=== PATIENT | male | born 1990 | race Caucasian/White ===

== ENCOUNTER 2022-11-21 09:49 | Emergency (ER) | payer MEDICAID ==
[~2022-11-21] VITALS: Ht 165.1 cm; Wt 76.7 kg
--- NOTE | 2022-11-21 09:52 | NUR ---
PT PLACED IN BED 05 BY [facility]
[2022-11-21 09:53] VITALS: BP 137/87
--- NOTE | 2022-11-21 10:13 | NUR ---
32 Y/O MALE BIBA FROM HOME, PT C/O ABD PAIN IN LLQ THAT STARTED TODAY. PT ALSO C/O N/V/D. DENIES ANMY RECENT ETOH OR DRUG USE. PMH: DENIES NKA
[2022-11-21] MEDS ORDERED: FAMOTIDINE 20 MG/2 ML VIAL IVP ONE (10:45)
[2022-11-21] MEDS ORDERED: KETOROLAC 30 MG/ML VIAL IVP ONE (10:45)
[2022-11-21] MEDS ORDERED: ONDANSETRON 4 MG/2 ML VIAL IVP ONE (10:45)
[2022-11-21] MEDS ORDERED: NACL 0.9% 1,000 ML IV SCH (10:45)
--- NOTE | 2022-11-21 11:11 | NUR ---
DR HERRERA AT BEDSIDE.
[2022-11-21 11:15] LABS: BASOPHILS % (AUTO) 0.1 % (0.0-2.0); EOSINOPHILS % (AUTO) 0.1 % (0.0-4.0); HEMATOCRIT 45.5 % (36-52); HEMOGLOBIN 15.7 g/dL (12.0-18.0); LYMPHOCYTES % (AUTO) 7.9 % (20.5-51.1); MEAN CORPUSCULAR HEMOGLOBIN 29 pg (27-31); MEAN CORPUSCULAR HGB CONC 35 g/dL (33-37); MEAN CORPUSCULAR VOLUME 83.1 fL (80-94); MONOCYTES # (AUTO) 0.4 K/uL (0.8-1.0); MONOCYTES % (AUTO) 3.5 % (1.7-9.3); NEUTROPHILS # (AUTO) 10.9 K/uL (1.8-7.7); NEUTROPHILS % (AUTO) 88.4 % (42.2-75.2); PLATELET COUNT (AUTO) 336 K/uL (140-450); RED BLOOD CELL COUNT(AUTO) 5.47 MIL/uL (4.20-6.10); RED CELL DISTRIBUTION WIDTH 13.3 % (11.6-13.7); WHITE BLOOD COUNT (AUTO) 12.3 K/uL (4.8-10.8)
[2022-11-21 11:15] LABS: APPEARANCE,URINE CLEAR (CLEAR); BILIRUBIN,URINE NEGATIVE (NEGATIVE); BLOOD, URINE NEGATIVE (NEGATIVE); COLOR,URINE YELLOW (YELLOW); LEUKOCYTE ESTERASE ,URINE NEGATIVE (NEGATIVE); NITRITE, URINE NEGATIVE (NEGATIVE); UGLUCOSE NEGATIVE (NEGATIVE)
[2022-11-21 11:46] LABS: ALBUMIN 4.4 g/dL (3.4-5.0); CARBON DIOXIDE 24.6 mmol/L (21-32); CREATININE 0.9 mg/dL (0.6-1.3); POTASSIUM 3.6 mmol/L (3.5-5.1); TOTAL BILIRUBIN 0.3 mg/dL (0.0-1.0)
[2022-11-21] MEDS ORDERED: ONDA-188 PO (12:45)
[2022-11-21] MEDS ORDERED: LOPE-143 PO (12:45)
--- NOTE | 2022-11-21 12:55 | NUR ---
PT DENIES ONGOING N/V/D OR ABDOMINAL PAIN AT THIS TIME.
--- NOTE | 2022-11-21 13:00 | NUR ---
Patient discharged with v/s stable. Written and verbal after care instructions given and explained. Patient alert, oriented and verbalized understanding of instructions. Ambulatory with steady gait. All questions addressed prior to discharge. ID band removed. Patient advised to follow up with PMD. Rx of LOPERAMIDE, ZOFRAN given. Patient educated on indication of medication including possible reaction and side effects. Opportunity to ask questions provided and answered.
[2022-11-21 13:05] VITALS: BP 131/80
--- NOTE | 2022-11-21 13:07 | NUR ---
The patient's care was reviewed and supervised by [facility] 05 GOSIA, RN.
== END 2022-11-21 13:15 | disposition home or self-care (01) ==
LOC: MED 09:49
DX: R11.2 Nausea with vomiting, unspecified (principal); R19.7 Diarrhea, unspecified; Z79.899 Other long term (current) drug therapy
CPT/HCPCS: 36415; 74176; 80053; 81003; 83690; 85025; 96361; 96374; 96375; 99285; J1885; J2405; J3490; J7030

== ENCOUNTER 2022-11-22 08:27 | Inpatient (IN) | payer MEDICAID ==
[~2022-11-22] VITALS: Ht 167.6 cm; Wt 69.4 kg
[~2022-11-22 08:27] MED LIST: LOPE-143 PO; ONDA-188 PO
[2022-11-22 08:39] VITALS: BP 134/77
--- NOTE | 2022-11-22 09:19 | NUR ---
PT AMBULATED TO BED 06
[2022-11-22 09:39] LABS: BASOPHILS % (AUTO) 0.3 % (0.0-2.0); EOSINOPHILS % (AUTO) 0.5 % (0.0-4.0); HEMATOCRIT 45.4 % (36-52); HEMOGLOBIN 15.7 g/dL (12.0-18.0); LYMPHOCYTES # (AUTO) 1.7 K/uL (2.0-11.5); LYMPHOCYTES % (AUTO) 18.6 % (20.5-51.1); MEAN CORPUSCULAR HEMOGLOBIN 29 pg (27-31); MEAN CORPUSCULAR HGB CONC 35 g/dL (33-37); MEAN CORPUSCULAR VOLUME 84.4 fL (80-94); MONOCYTES # (AUTO) 0.6 K/uL (0.8-1.0); MONOCYTES % (AUTO) 6.2 % (1.7-9.3); NEUTROPHILS # (AUTO) 6.9 K/uL (1.8-7.7); NEUTROPHILS % (AUTO) 74.4 % (42.2-75.2); PLATELET COUNT (AUTO) 343 K/uL (140-450); RED BLOOD CELL COUNT(AUTO) 5.38 MIL/uL (4.20-6.10); RED CELL DISTRIBUTION WIDTH 13.4 % (11.6-13.7); WHITE BLOOD COUNT (AUTO) 9.3 K/uL (4.8-10.8)
--- NOTE | 2022-11-22 09:56 | NUR ---
[facility]
[2022-11-22 09:57] LABS: ALBUMIN 4.1 g/dL (3.4-5.0); ANION GAP 11.6 (8-16); CARBON DIOXIDE 29.3 mmol/L (21-32); POTASSIUM 3.9 mmol/L (3.5-5.1); TOTAL BILIRUBIN 0.5 mg/dL (0.0-1.0)
--- NOTE | 2022-11-22 10:05 | NUR ---
Patient returned from CT
--- NOTE | 2022-11-22 10:24 | NUR ---
32 y/o male bib self with c/o RLQ abdominal pain x yesterday. Patient was seen in ER yesterday for same symptoms and prescribed Loperamide and Zofran. Patient reports increase in pain to RLQ. Denies taking any medication, sick contacts or new foods. Patient denies any fevers, diarrhea or nausea. Medical History: Denies NKDA
[2022-11-22] MEDS ORDERED: MORPHINE SULFATE 4 MG/ML SYR IVP ONE (10:50)
--- NOTE | 2022-11-22 10:51 | NUR ---
Dr. Becerra re-evaluating patient at bedside.
[2022-11-22] MEDS ORDERED: NACL 0.9% 1,000 ML IV ONE (10:55)
[2022-11-22] MEDS ORDERED: LORazepam 2 MG/ML VIAL IVP PRN (11:15)
[2022-11-22] MEDS ORDERED: ACETAMINOPHEN 325 MG TAB PO PRN (11:15)
[2022-11-22] MEDS ORDERED: POTASSIUM CHLORIDE 10 MEQ TABER PO PRN (11:15)
[2022-11-22] MEDS ORDERED: ONDANSETRON 4 MG/2 ML VIAL IVP PRN (11:15)
[2022-11-22] MEDS ORDERED: ZOLPIDEM 10 MG TAB PO PRN (11:15)
[2022-11-22] MEDS ORDERED: MAG SULF 2000 MG/WATER PREMIX 50 ML IV PRN (11:15)
[2022-11-22] MEDS ORDERED: DOCUSATE SODIUM 100 MG GELCAP PO PRN (11:15)
[2022-11-22 11:36] LABS: PROTHROMBIN TIME 9.6 secs (10.8-13.4)
--- NOTE | 2022-11-22 12:00 | NUR ---
Patient is laying in bed, all needs met by staff.
[2022-11-22] MEDS: NACL 0.9% 1,000 ML IV SCH ×2 (12:15→22:30)
--- NOTE | 2022-11-22 13:10 | NUR ---
Patient will be admitted to care of . Admited to M/S. Will go to room 104A. Belongings list completed. Report to FAITH SANCHEZ.
--- NOTE | 2022-11-22 13:12 | NUR ---
The patient's care was reviewed and supervised by Bri Mcneal, RN, RN.
[2022-11-22 13:15] VITALS: BP 128/82
--- NOTE | 2022-11-22 13:15 | NUR ---
RECEIVED PT FROM ER FOR CONTINUITY OF CARE. TRANSPORTED VIA GURNEY. REPORT RECEIVED BY MONROE CUEVAS. PLACED IN BED COMFORTABLY. ALERT AND ORIENTED X 4. VINCENTIAN SPEAKING ONLY. COMMUNICATION DEVICE USE. INITIAL ASSESSMENT DONE. RESP. EVEN AND UNLABORED. IV SITE TO LAC 20G. CONTINENT TO BOWEL AND BLADDER. SKIN INTACT. CURRENTLY ON NPO, SCHEDULED FOR SURGERY AT 1830. MRSA SWAB COLLECTED. SEND TO LAB. CALL LIGHT KEPT WITHIN REACH. WILL CONTINUE TO MONITOR.
--- NOTE | 2022-11-22 18:13 | NUR ---
PT OFF UNIT. SCHEDULED FOR SURGERY. BAKERY CHEF BY JUSTIN CUEVAS. REMAINS STABLE.
[2022-11-22] MEDS ORDERED: fentaNYL citrate 0.05 MG/ML VIAL ONE ×2 (18:18→18:41)
[2022-11-22] MEDS ORDERED: MIDAZOLAM 2 MG/2 ML VIAL ONE ×2 (18:18→18:41)
[2022-11-22] MEDS ORDERED: BUPIVACAINE-MPF 0.25% 30 ML VIAL INJ ONE (18:19)
[2022-11-22] MEDS ORDERED: LIDOCAINE/EPI MPF 1%1:200000 30 ML VIAL INJ ONE (18:19)
[2022-11-22] MEDS ORDERED: SUCCINYLCHOLINE CHLORIDE 200 MG/10 ML VIAL IVP ONE (18:41)
[2022-11-22] MEDS ORDERED: SEVOFLURANE 250 ML BTL INH ONE (18:41)
[2022-11-22] MEDS ORDERED: ROCURONIUM 50 MG/5 ML VIAL IV ONE (18:41)
[2022-11-22] MEDS ORDERED: KETOROLAC 30 MG/ML VIAL ONE (18:41)
[2022-11-22] MEDS ORDERED: DEXAMETHASONE 4 MG/ML VIAL ONE (18:41)
[2022-11-22] MEDS ORDERED: PROPOFOL 200 MG/20 ML VIAL IV ONE (18:41)
[2022-11-22] MEDS ORDERED: METOCLOPRAMIDE 10 MG/2 ML INJ VIAL ONE (18:41)
--- NOTE | 2022-11-22 19:10 | NUR ---
ENDORSED TO NIGHT NURSE JAMEL FOR CONTINUITY OF CARE. PT CURRENTLY ON SURGERY.
[2022-11-22] MEDS ORDERED: HYDROcodone/APAP 5/325 MG 1 TAB TAB PO PRN (19:45)
[2022-11-22] MEDS: HYDROmorphone PFS 2 MG/ML SYR ONE ×3 (20:03→20:15)
[2022-11-22] MEDS: HYDROmorphone 1 MG/ML AMP IVP PRN ×4 (20:05→20:35)
--- NOTE | 2022-11-22 20:40 | NUR ---
PATIENT WAS BROUGHT TO [facility] FROM OR VIA GURNEY AWAKE IN NO ACUTE DISTRESS NOTED. NO COMPLAINTS OF PAIN AT THIS TIME. SAFETY PRECAUTIONS ARE IN PLACE. CALL LIGHT WITHIN REACH. WILL CONTINUE TO MONITOR.
[2022-11-22] MEDS: MORPHINE SULFATE 2 MG/ML SYR IVP PRN (22:52)
[2022-11-23] VITALS: BP 117/72
--- NOTE | 2022-11-23 00:55 | NUR ---
ADMINISTERED SCHEDULED DUE MEDICATION.
--- NOTE | 2022-11-23 01:25 | NUR ---
PATIENT COMPLAINED OF HEADACHE, MEDICATED WITH TYLENOL.
[2022-11-23 06:19] LABS: BASOPHILS % (AUTO) 0.1 % (0.0-2.0); HEMATOCRIT 42.4 % (36-52); HEMOGLOBIN 14.5 g/dL (12.0-18.0); LYMPHOCYTES # (AUTO) 0.8 K/uL (2.0-11.5); LYMPHOCYTES % (AUTO) 8.6 % (20.5-51.1); MEAN CORPUSCULAR HEMOGLOBIN 29 pg (27-31); MEAN CORPUSCULAR HGB CONC 34 g/dL (33-37); MEAN CORPUSCULAR VOLUME 84.2 fL (80-94); MONOCYTES # (AUTO) 0.4 K/uL (0.8-1.0); NEUTROPHILS # (AUTO) 8.1 K/uL (1.8-7.7); NEUTROPHILS % (AUTO) 87.3 % (42.2-75.2); PLATELET COUNT (AUTO) 336 K/uL (140-450); RED BLOOD CELL COUNT(AUTO) 5.03 MIL/uL (4.20-6.10); RED CELL DISTRIBUTION WIDTH 13.3 % (11.6-13.7); WHITE BLOOD COUNT (AUTO) 9.3 K/uL (4.8-10.8)
[2022-11-23 06:51] LABS: ANION GAP 13.2 (8-16); CREATININE 0.8 mg/dL (0.6-1.3); POTASSIUM 4.2 mmol/L (3.5-5.1)
--- NOTE | 2022-11-23 07:16 | NUR ---
GAVE REPORT TO DAY SHIFT FAITH GARCIA FOR CONTINUITY OF CARE. PATIENT STABLE.
[2022-11-23 07:45] VITALS: BP 113/71
[2022-11-23] MEDS: NACL 0.9% 1,000 ML IV SCH (08:30)
--- NOTE | 2022-11-23 09:07 | NUR ---
PATIENT HAS BEEN SCREENED AND CATEGORIZED LOW NUTRITION RISK. PATIENT WILL BE SEEN WITHIN 7 DAYS OF ADMISSION. 11/22/22-11/29/[address]
[2022-11-23] MEDS ORDERED: HYDR-5080 PO (12:00)
[2022-11-23] MEDS: MORPHINE SULFATE 2 MG/ML SYR IVP PRN (12:07)
--- NOTE | 2022-11-23 13:10 | NUR ---
PATIENT DISCHARGE TO HOME WITH A COPY OF DISCHARGE INSTRUCTION AND ALL BELONGINGS. INTACT 20 GAUGE INTRAVENOUS CATHETER TIP IS PRESENT ON REMOVAL. REMOVAL OF IDENTIFICATION BRACELET.
== END 2022-11-23 13:10 | disposition home or self-care (01) | DRG 234 ==
LOC: MED 08:27 → MTU 11:15
PROVIDERS: ADMIT Family Medicine; ATTEND Family Medicine
PROC: 0DTJ4ZZ Resection of Appendix, Percutaneous Endoscopic Approach (ICD-10-PCS; principal; 2022-11-22 18:30)
DX: K35.80 Unspecified acute appendicitis (principal); F17.210 Nicotine dependence, cigarettes, uncomplicated; Z20.822 Contact with and (suspected) exposure to COVID-19
CPT/HCPCS: 36415; 80048; 80053; 82374; 83690; 83735; 85025; 85610; 85730; 86140; 86886; 86900; 86901; 87040; 87081; 96374; 96375; 99291; J0330; J0694; J1100; J1170; J1885; J2001; J2250; J2270; J2704; J2765; J3010; J3490; J7030; J7060; Q9967

== ENCOUNTER 2022-12-02 10:15 | Emergency (ER) | payer MEDICAID ==
[~2022-12-02] VITALS: Ht 165.1 cm; Wt 68.9 kg
[~2022-12-02 10:15] MED LIST changes: +HYDR-5080 PO; -LOPE-143 PO; -ONDA-188 PO
[2022-12-02 10:26] VITALS: BP 120/77
--- NOTE | 2022-12-02 10:26 | NUR ---
pt to bed 7 ambulatory with urine cup
--- NOTE | 2022-12-02 10:30 | NUR ---
32YO MALE PT IN FOR FOLLOW UP. REPORTS HAVING APPENDIX SX ON 11/29. STATES SHARP PAIN ON MOVEMENT, TENDER TO TOUCH. CLOSED INCISIONS NOTED. DENIES N/V/D, FEVER OR CHILLS. PT AAOX4, HOB POSITIONED PER COMFORT HX:DENIES NKA
--- NOTE | 2022-12-02 10:51 | NUR ---
MD HERRERA AT BEDSIDE FOR EVALUATION
--- NOTE | 2022-12-02 11:15 | NUR ---
Patient discharged with v/s stable. Written and verbal after care instructions FOR ABD PAIN given and explained. Patient verbalized understanding. Ambulatory with steady gait. All questions addressed prior to discharge. Advised to follow up with PMD.
--- NOTE | 2022-12-02 11:30 | NUR ---
Note undone in EDM - 12/02/22 at 1156 by PHSEP 32YO MALE PT IN FOR FOLLOW UP. REPORTS HAVING APPENDIX SX ON 11/29. STATES SHARP PAIN ON MOVEMENT, TENDER TO TOUCH. CLOSED INCISIONS NOTED. DENIES N/V/D, FEVER OR CHILLS. PT AAOX4, HOB POSITIONED PER COMFORT HX:DENIES NKA
--- NOTE | 2022-12-02 12:09 | NUR ---
The patient's care was reviewed and supervised by Ramandeep Fleming RN.
== END 2022-12-02 11:15 | disposition home or self-care (01) ==
LOC: MED 10:15
DX: R10.12 Left upper quadrant pain (principal); Z79.899 Other long term (current) drug therapy; Z90.49 Acquired absence of other specified parts of digestive tract
CPT/HCPCS: 99281